=== PATIENT | male | born 1980 | race Hispanic/Latino ===

== ENCOUNTER 2017-08-31 18:12 | Emergency (ER) | payer OTHER ==
[~2017-08-31] VITALS: Ht 172.7 cm; Wt 103.0 kg
[2017-08-31 21:13] VITALS: BP 141/86
== END 2017-08-31 21:21 | disposition home or self-care (01) ==
LOC: EME 18:12
PROC: 0RSKXZZ Reposition Left Shoulder Joint, External Approach (ICD-10-PCS; principal; 2017-08-31)
DX: S43.085A Other dislocation of left shoulder joint, initial encounter (principal); V00.321A Fall from snow-skis, initial encounter; Y93.23 Activity, snow (alpine) (downhill) skiing, snowboarding, sledding, tobogganing and snow tubing; Z87.891 Personal history of nicotine dependence
CPT/HCPCS: 73030; 99281; 99284; J2270